=== PATIENT | male | born 1975 | race Caucasian/White ===

== ENCOUNTER 2025-02-06 19:52 | Emergency (ER) | payer OTHER, SELFPAY ==
[2025-02-06 19:59] VITALS: BP 132/85
[2025-02-06 20:15] LABS: Hematocrit 41.9 % (39.0-52.0); Hemoglobin 14.7 g/dL (13.0-18.0); Mean Corp Hgb Conc. 35.1 g/dL (33.0-37.0); Mean Corpuscular Volume 88.0 fL (80.0-94.0); Nucleated Red Blood Cells % 0 % (-); Platelet Count 202 10^3/uL (130-400); Red Cell Dist. Width 12.0 % (11.5-14.5)
[2025-02-06 20:32] LABS: ALT (SGPT) 26 U/L (0-50); AST (SGOT) 27 U/L (17-59); Albumin 4.7 g/dl (3.5-5.0); Alkaline Phosphatase 56 U/L (38-126); Blood Urea Nitrogen 19 mg/dl (9-20); Calcium 10.5 mg/dl (8.4-10.2); Carbon Dioxide 31 mmol/L (22-30); Chloride 103 mmol/L (98-107); Glucose 87 mg/dl (70-99); Potassium 4.3 mmol/L (3.5-5.1); Sodium 137 mmol/L (135-145); Total Protein 7.6 g/dl (6.3-8.2); eGFR > 60.00
[2025-02-06 20:45] LABS: Troponin I < 0.012 ng/ml
--- NOTE | 2025-02-06 23:06 | ED.GENMED ---
History of Present Illness
General
Chief Complaint: Chest Pain
Time Seen by Provider: 02/06/25 22:17
History of Present Illness
History of Present Illness:
49-year-old male presents the emergency department for evaluation of chest pain and left-sided paresthesias involving the arm and leg/foot. Symptoms began upon awakening from sleep this morning and persisted throughout the day. The chest
discomfort has improved. No obvious palliating or provoking factors. 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
years and is scheduled for an MRI in 2 weeks to further evaluate this. He also notes a history of complex migraines with left-sided paresthesias but has not had a headache today
Past History
Past History
ED Past Medical History: Other (divericulitis)
ED Past Surgical History: Bowel resection (with Colostomy and reversal)
Social History
Tobacco: Non-smoker
Alcohol: None
Personal:
Living: with family
Review of Systems
Review of Systems
Allergies reviewed?: Yes
All Other Systems: ROS reviewed and negative except as documented in HPI and ROS
Phy Exam
Physical Exam
Physical Exam:
GEN: Well appearing, NAD, WDWN
HEENT: Oral mucosa moist, no scleral icterus, no nasal congestion
Cardiac: Regular rate and rhythm, no murmur
Lung: No respiratory distress, no tachypnea
MSK: No gross deformity or injuries
Skin: Good color, no pallor or jaundice, no rashes
Neuro: AO x3; CN II-XII grossly intact. BUE strength 5/5 in all nguyen, sensation intact and symmetric. BLE strength 5/5 in all nguyen, sensation intact and symmetric
Psych: Calm, cooperative
Scores
Heart Score for Chest Pain Patients
STEMI patient?: No
History: Slightly or Non-Suspicious
ECG: Normal
Age: >45 - <65 years
Risk Factors: No Risk Factors
Troponin: </= Normal Limit
Heart Score for Chest Pain Patients: 1
Heart Score Risk: 2.5% MACE over next 6 weeks
Course
Orders/Labs/Results
Orders:
Orders
02/06/25 19:55
Electrocardiogram (*1) Urgent
Reason for Study: Chest Pain
EKG- Treatment ONCE
02/06/25 20:07
Complete Blood Count/With Diff Urgent
Comprehensive Metabolic Panel Urgent
Troponin I Urgent
Abnormal Lab Results
02/06/25
20:07
MPV 11.1 H fL
(7.4-10.4)
Absolute Monos (auto) 1.1 H 10^3/uL
(0.1-0.6)
Monocytes % 13.3 H %
(1.7-9.3)
Carbon Dioxide 31 H mmol/L
(22-30)
Calcium 10.5 H mg/dl
(8.4-10.2)
02/06/25 20:07
02/06/25 20:07
Vital Signs
Initial and Last Documented VS:
Initial Vital Signs
Temp Pulse Resp BP Pulse Ox
98.3 F 60 18 132/85 100
02/06/25 19:59 02/06/25 19:59 02/06/25 19:59 02/06/25 19:59 02/06/25 19:59
Last Documented Vital Signs
Temp Pulse Resp BP Pulse Ox
98.3 F 51 18 122/83 98
02/06/25 19:59 02/06/25 23:26 02/06/25 23:26 02/06/25 23:26 02/06/25 23:26
MDM/Problems Addressed
MDM/Problems Addressed:
Patient has a nonfocal neurologic exam with no objective sensory deficit. Low clinical suspicion for CVA/TIA given his lack of risk factors and age under 50. In regards to his benign brain mass he is scheduled for an MRI within 2 weeks and given
that he has no focal neurologic deficits I do not feel like the CT would provide much validity at this stage. Doubt cardiac etiology given normal EKG and normal labs.
*Pulse Oximetry
SaO2: 98
Oxygen Mode of Delivery: Room air
Patient hypoxic: no
*Critical Care Note
Total Time (30-74mins, 75-104mins- exclusive of procedures): Not Applicable
ED Attending Note
-
Portions of this chart may have been created with voice recognition software.� Occasional wrong word or��sound alike� substitutions may have occurred due to the inherent limitations of voice recognition software.
Discharge Plan
Departure
Patient Disposition: Home (Routine Discharge)
Date of Disposition: 02/06/25
Time of Disposition: 23:14
Patient with high blood pressure during this ER visit?: No
Discharge Problem:
Paresthesias
Instructions: Peripheral neuropathy
Prescriptions:
No Action
loratadine 10 MG tablet
10 mg PO DAILY
levofloxacin 500 MG tablet
500 mg PO DAILY Qty: 6 0RF
metronidazole 500 MG tablet
500 mg PO Q8 Qty: 18 0RF
Referrals:
Ever Flowers CRNP [Family Provider, General]
Activity Restrictions/Additional Instructions:
The cause of your symptoms is not clear however we do not have a high suspicion for stroke or TIA at this point. Follow-up with your MRI in 2 weeks as planned. Return if symptoms worsen or you develop any weakness
Interventions
Interventions:
*Risk Screen - Suicide Last Done: 02/06/25 20:02
*General Assessment Last Done: 02/06/25 22:55
*Neglect/Abuse Screening Last Done: 02/06/25 20:02
*ED- Fall Risk Assessment Last Done: 02/06/25 22:55
*ED COVID-19 Vaccine History Last Done: 02/06/25 22:55
*Nursing Disposition Last Done: 02/06/25 23:26
ED- Cardiac Assessment Last Done: 02/06/25 23:20
Discharge Date and Time
Discharge Date/Time: 02/06/25 23:30
Print Language: SOMALI
[2025-02-06 23:26] VITALS: BP 122/83
== END 2025-02-06 23:30 | disposition home or self-care (01) ==
LOC: EMR 19:52
PROVIDERS: Emergency Medicine; EMERGENCY PHYSICIAN Emergency Medicine; FAMILY PHYSICIAN Nurse Practitioner Family
DX: R20.2 Paresthesia of skin (principal); R07.89 Other chest pain; Z86.011 Personal history of benign neoplasm of the brain
CPT/HCPCS: 99284; 80053; 84484; 85025; 93005